=== PATIENT | female | born 1975 | race Caucasian/White ===

== ENCOUNTER → 2016-10-18 | Outpatient (CLI) | payer OTHER ==
--- NOTE | 2016-10-19 00:30 | CONS ---
DATE OF CONSULTATION: CONSULTATION/NEW PATIENT EVALUATION HISTORY OF PRESENT ILLNESS/SLEEP-WAKE EVALUATION: 41-year-old lady who has been evaluated in the sleep center for possible obstructive sleep apnea-hypopnea syndrome. SLEEP SCHEDULE: Patient usually goes to bed on about 10:00 p.m. and gets up in the morning by 5:00 a.m. on working days and on weekends she goes to bed at 11 and gets up in the morning at 8 or 9:00 a.m. FALLING ASLEEP: Sometimes she may have problems with falling asleep. She has a little bit uncomfortable bed ( ) at home. No TV set in bedroom. DURING SLEEP: She prefers to sleep on the side position. According to her , she snores and has episodes of stopped breathing during sleep. She wakes up from sleep, multiple times and every time goes out of bed and has to go to the bathroom. She grinds her teeth and has episodes of panic attacks, gasping for air, restless leg and sleeptalking. DURING THE DAY/WAKE STATE: In the morning she wakes up tired, falling asleep during the day, has problems with memory, depression and anxiety. [place] Sleepiness Scale is 6. PAST MEDICAL HISTORY: Positive for multiple sclerosis with some leg weakness. History of depression and anxiety. MEDICATIONS: 1. Fluticasone. 2. ( ). 3. Gabapentin. 4. Ropinirole. 5. Baclofen. 6. Magnesium supplement. 7. Multivitamins. 8. Fish oil. ALLERGIES: PENICILLIN. SOCIAL HISTORY: Positive for smoking for about 15 years up to 1-1/2 packs a day. The patient continues smoking. Alcohol consumption occasional. REVIEW OF SYSTEMS: Multiple awakenings from sleep. No fevers. No double vision. No recent chest pain. No shortness of breath. No abdominal pain. No bleeding episodes. No blood in urine. No seizure episodes. FAMILY HISTORY: Positive for hypertension, hyperlipidemia, snoring, thyroid problems, PHYSICAL EXAMINATION: GENERAL: A pleasant 41-year-old lady without distress. VITAL SIGNS: BP 127/91, HR 71, RR 16. Height 5 feet 3-1/2, weight 251.8. BMI 40.2. Neck 14 inches in circumference Temperature 98.0. Oxygen saturation at room air 98%. Oropharynx extremely low position of soft palate. NECK: Supple. No JVD. Thyroid is not palpable. LUNGS: Clear to percussion and to auscultation. Good air exchange. No wheezing or rhonchi. HEART: S1, S2 regular. No murmurs, gallops or rubs. ABDOMEN: Obese. Soft and nontender. Bowel sounds are present. No organomegaly appreciated. EXTREMITIES: No clubbing or cyanosis. MARKET RESEARCH ASSOCIATE: Sometimes weakness of the legs while walking. Awake, alert, and oriented x3. Cranial nerves 2 to 7 intact. There is no fasciculation or atrophy noted. . IMPRESSION: 1. Snoring, witnessed episodes of stopped breathing during sleep, extremely low position of soft palate, multiple awakenings from sleep. Tiredness and sleepiness during the day, obesity obstructive sleep apnea-hypopnea syndrome. 2. Obesity, body mass index 40.2. 3. History of depression. 4. History of anxiety. 5. History of multiple sclerosis with episodes of weakness the legs. 6. Patient is smoker for more than 20 pack-years. PLAN: 1. Polysomnography for evaluation of patient's breathing during sleep. 2. CPAP/BiPAP titration if sleep study confirms obstructive sleep apnea-hypopnea syndrome. 3. Preferable position during sleep on the side. 4. No driving if patient feels any sleepiness. Patient is aware of civil and criminal liability for unsafe driving. 5. I will see patient for follow-up visit to explain results of the testing and following plan. 6. Smoking cessation program. Thank you very much for referring this patient for consultation. Sincerely, Jamin Hyatt MD, PhD, FAASM. Diplomat of [place] [employer], Sleep Medicine Board by [place] [employer] [place] [employer] Adjunct Professor of [facility] [place]
== END | disposition home or self-care (01) ==
LOC: SLEEP 15:35
PROVIDERS: ATTEND Internal Medicine
DX: G47.33 Obstructive sleep apnea (adult) (pediatric) (principal); G35 Multiple sclerosis; E66.9 Obesity, unspecified; F17.200 Nicotine dependence, unspecified, uncomplicated; Z79.899 Other long term (current) drug therapy; Z79.51 Long term (current) use of inhaled steroids; Z88.0 Allergy status to penicillin
CPT/HCPCS: 99211

== ENCOUNTER → 2016-10-25 | Outpatient (CLI) | payer OTHER ==
--- NOTE | 2016-10-25 16:17 | PN ---
DATE OF SERVICE: 10/25/2016 This patient is a 41-year-old lady who has been followed in the sleep center for evaluation of possible obstructive sleep apnea-hypopnea syndrome, snoring and possible sleep state misperception. I discussed the results of her diagnostic sleep study with the patient in detail. Recording was done for 7 hours 8 minutes. Patient slept 6 hours 3 minutes. Sleep efficiency was normal at 84.8%, although the patient felt that she slept only about 2 hours. Mild snoring and moderate snoring were documented with very minimal respiratory abnormalities, mostly in REM sleep on while on the back, with total apnea-hypopnea index 2.6 following the rule of 4% oxygen desaturation criteria for hypopneas, which is practically within normal range by today's criteria. [place] Sleepiness Scale today is 10. EMG showed 23.1 periodic limb movements per hour with 3.3 microarousals per hour, but at different times of the night the amount of periodic limb movements was different, and in several periods it was significantly high. MEDICATIONS: 1. Fluticasone. 2. ( ) 3. Gabapentin. 4. Ropinirole. 5. Baclofen. 6. Magnesium supplement. 7. Vitamins. PHYSICAL EXAMINATION: GENERAL: Patient is a very pleasant 41-year-old lady in no distress. VITAL SIGNS: BP 116/91, HR 78, RR 16. Height 5 feet 3 inches. Weight 232. BMI 41. Temperature 97.9. Oxygen saturation at room air 98%. HEENT: PERRLA, EOMI. Evaluation of oropharynx showed small oropharyngeal air space. NECK: Supple. No JVD. Thyroid is not palpable. LUNGS: Clear to percussion and to auscultation. Good air exchange. No wheezing or rhonchi. HEART: S1, S2 regular. No murmurs, gallops or rubs. ABDOMEN: Obese. EXTREMITIES: No clubbing or cyanosis. COSMETOLOGIST: Awake, alert, and oriented x3. Cranial nerves 2 to 7 intact. There is no fasciculation or atrophy noted. No focal deficits observed. IMPRESSION: 1. Moderate snoring was documented during the sleep study. 2. No significant respiratory abnormalities were documented during the sleep study. 3. Mild periodic limb movements were documented. Patient is on treatment with Ropinirole. 4. History of multiple sclerosis. 5. History of depression and anxiety. 6. Obesity. 7. Smoker of 20 pack-years. PLAN: 1. Losing weight. 2. Preferable position during sleep is on the side. We discussed how to use tennis ball technique, or patient can use other equipment to avoid sleeping on her back. 3. Smoking cessation program. 4. No driving if feeling any sleepiness. 5. Sleep hygiene with regular time in bed for at least 7-1/2 to 8 hours; again sleeping on the side. Thank you very much for referring this patient for evaluation. Sincerely, Jamin Hyatt MD, PhD, FAASM. Diplomat of [place] [employer], Sleep Medicine Board by [place], [place] [employer]
== END | disposition home or self-care (01) ==
LOC: SLEEP 13:11
PROVIDERS: ATTEND Internal Medicine
DX: G47.33 Obstructive sleep apnea (adult) (pediatric) (principal); E66.9 Obesity, unspecified; Z68.41 Body mass index [BMI] 40.0-44.9, adult; F32.9 Major depressive disorder, single episode, unspecified; F41.9 Anxiety disorder, unspecified; G35 Multiple sclerosis; F17.200 Nicotine dependence, unspecified, uncomplicated; Z79.899 Other long term (current) drug therapy